=== PATIENT | male | born 1975 | race Caucasian/White ===

== ENCOUNTER → 2016-06-03 | Outpatient (CLI) | payer BC ==
[2015-11-21 17:43] VITALS: BP 132/86
[~2016-06-03] MED LIST: IOHEXOL 180 MG/ML 10 ML VIAL. ONE; LORA10TA3 PO; METF10002 PO; OMEP20TA PO; ONDA4TAB10 PO; OXYC-323 PO; SERT50TA PO; SITA100T PO; TRAZ50TA15 PO; losartan; methylPREDNISolone ACETATE 40 MG/ML VIAL. ONE; methylPREDNISolone ACETATE 80 MG/ML VIAL. ONE
--- NOTE | 2016-06-04 01:10 | PAIN ---
DATE OF SERVICE: 06/03/2016 INITIAL CONSULTATION FOR PAIN CLINIC CHIEF COMPLAINT: Low back and left lower extremity pain. HISTORY OF PRESENT ILLNESS: This is a 40-year-old male who presents with history of pain for about 10 years, worse over the past 6 months or so, increasing across the low back, mostly in the left side in the left lower back radiating into the posterior gluteus, posterior thigh, stabbing, constant, shooting pain, intermittent in intensity, but always present, worse when he is on his feet, standing and walking, wakes him from sleep occasionally, but not every night, does not affect his bowel or bladder control, but does affect his ability to walk. He is not using any assistive devices, however. 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 The patient reports that the pain is becoming more pronounced radiating into the posterior gluteus, posterior and lateral thigh as well as the upper thigh anteriorly, occasionally and into the posterior thigh and knee on occasion as well. The patient reports that he has had significant pain all the way into his lower leg in years past, but has not been present over the past year or so, just in the area described. The patient reports his disability rating from 0 to 10, 10 being the worst, as a 6 with family and home responsibilities, social activity and life support activities, 4 with recreation, 7 with occupation and sexual behavior, 3 with self-care activities. The patient has tried Celebrex without significant improvement. He has not had any recent physical therapy. He is doing some walking on his own, also riding his stationary bikes, which he feels decreased the pain slightly, but otherwise is not on any other formal treatments at this time. The patient did have an MRI scan of his lumbar spine showing moderate degenerative disk disease at L5-S1, minimally at L4-L5 and L1-L2 with minimal posterior disk osteophyte complex and very shallow protrusion in L5-S1, near the ventral surface of the descending S1 nerve root without displacement, very mild narrowing of the far lateral recesses bilaterally, but overall adequate canal dimensions. The patient reports no loss of motor function in the lower extremities, but significant pain with standing and walking, also with sitting on the left side. PAST MEDICAL HISTORY: Significant for diabetes, hearing loss, hypertension, gastroesophageal reflux, arthritis, no previous surgeries, asthma and depression. CURRENT MEDICATIONS: Include omeprazole, lamotrigine, trazodone, losartan, Januvia, metformin, sertraline. ALLERGIES: The patient has no known drug allergies. FAMILY HISTORY: Significant for diabetes, cancers, strokes, also arthritis, hypertension. SOCIAL HISTORY: The patient does not smoke, does not drink alcohol or use any other drugs or other substances. REVIEW OF SYSTEMS: The patient's review of systems is positive for those items mentioned in history of present illness. All systems reviewed and otherwise negative. It is complete, full and well documented on the patient's chart. PHYSICAL EXAMINATION: GENERAL: Blood pressure 133/89, pulse is 90, respirations 16, temperature is 97.6 degrees Fahrenheit, height is 6 feet 1 inch, weight is 243 pounds. GENERAL: The patient is awake, alert, oriented, appropriate, very pleasant demeanor. HEENT: Shows normocephalic, atraumatic. Extraocular movements are intact and symmetrical. Oral cavity, mucous membranes moist and pink. Dentition is intact. NECK: Shows anterior throat supple without palpable lymphadenopathy noted. Swallow reflex is symmetrical. Neck shows full rotational motion of the cervical spine without difficulty or tenderness including extension and flexion and right and left lateral rotation. CHEST: Shows normal with inspection. Breath sounds clear to auscultation bilaterally. HEART: Shows S1 and S2 clear. No murmurs auscultated. ABDOMEN: Soft, nontender, nondistended. No palpable organomegaly. No rebound or guarding demonstrated. BACK: Shows spine grossly in midline. Normal appearing thoracic kyphosis, lumbar lordotic curvature. No previous bruises, lesions, rashes or scars are noted with inspection. Lumbar paraspinous musculature shows symmetrical throughout the upper, middle and lower distribution, but palpation shows moderate tenderness with palpation in the inferior aspect of the left low paraspinous musculature in the lumbar distribution, but not right. Firm bilaterally, but normal muscle girth and symmetry, but no specific tenderness on the right side. There is no tenderness over the sacrum or sacroiliac regions. The patient has full rotational motion of lumbar spine, both laterally greater than 10 degrees right and left as well as extension greater than 10 degrees, forward flexion 45 degrees without significant exacerbation of pain. Lower extremities show deep tendon reflexes 2+ in the patellar, 1+ tendo calcaneus tendons. Motor exam is strong with 5/5 dorsiflexion, extension, quadriceps and hamstring flexion equal bilaterally. Peripheral pulses are 2+; posterior tibial and dorsalis pedis pulses are equal. No peripheral edema is noted. No clubbing, no cyanosis. Lower extremities are warm and dry to touch, equal in color and appearance. Straight leg raise noted to be negative bilaterally as is Gaenslen's and Maurice's maneuvers without pain reported to either of these bilaterally. The patient is able to stand, stand on his toes without difficulty or loss of balance, walks with a normal appearing gait for short distance, almost it is difficult getting from a sitting to a standing position as he reports pain across the low back into the left hip when doing this. IMPRESSION: 1. This is a 40-year-old male with long history of low back pain with some radicular pain into the left lower extremity, worse in the past, but now into the left hip and posterior lateral anterior thigh. 2. MRI scan of lumbar spine as noted. 3. History of hypertension. 4. Type 2 diabetes. PLAN: Options were discussed with the patient including conservative medical management, physical therapy, interventional techniques. He would like to pursue interventional techniques. He ____ time to visit physical therapy as he works night and his time is very limited during the day when he is not resting. We discussed lumbar epidural steroid injection using ____ anatomical models to describe the procedure. Risks were then discussed including, but not limited to bleeding, infection, possibility of epidural hematoma, subsequent neurologic compromise, dural puncture, headaches, spinal cord and/or nerve damage, side effects of steroid medication and poor results regarding pain control. The patient understands and wishes to proceed. The patient will return to clinic in approximately 2 weeks for followup, was counseled on return appointment, activity level and side effects to be aware of. DIAGNOSIS: Lumbar radiculopathy with lumbar degenerative disk disease. PROCEDURES: Lumbar epidural steroid injection in translaminar approach at the L5-S1 level using C-arm fluoroscopic guidance under sterile prep and drape and local anesthetic. MEDICATION INJECTED: 120 mg Depo-Medrol plus 10 mL of preservative-free normal saline and 2 mL of Isovue for contrast. CONDITION AT DISCHARGE: Stable. The patient tolerated procedure well and no complications. KANWAL LATIF MD DR: TRACEE/kvng JOB#: [id number] / [id number] ASA Chow
== END | disposition home or self-care (01) ==
LOC: PNCL 07:48
PROVIDERS: ATTEND Anesthesiology
DX: M51.16 Intervertebral disc disorders with radiculopathy, lumbar region (principal); I10 Essential (primary) hypertension; E11.9 Type 2 diabetes mellitus without complications; Z83.3 Family history of diabetes mellitus; Z80.9 Family history of malignant neoplasm, unspecified
CPT/HCPCS: 62323; J1030; J1040

== ENCOUNTER 2016-12-14 21:20 | Inpatient (IN) | payer BC ==
[~2016-12-14] VITALS: Ht 185.4 cm; Wt 108.2 kg
[~2016-12-14 21:20] MED LIST changes: -IOHEXOL 180 MG/ML 10 ML VIAL. ONE; +METF-620 PO; -METF10002 PO; -OMEP20TA PO; +OMEP20TA8 PO; -methylPREDNISolone ACETATE 40 MG/ML VIAL. ONE; -methylPREDNISolone ACETATE 80 MG/ML VIAL. ONE
[2016-12-14 21:49] LABS: BASO # 0.1 x10^3/uL (0.0-0.2); BASO % 1 % (0-3); EOS % 4 % (0-3); HEMATOCRIT 42.8 % (39.0-53.0); HEMOGLOBIN 14.9 g/dL (13.0-17.5); LYMPH # 2.8 x10^3/uL (1.0-4.8); LYMPH % 36 % (24-48); MEAN CORPUSCULAR HEMOGLOBIN 31 pg (25-35); MEAN CORPUSCULAR HGB CONC 35 g/dL (31-37); MEAN CORPUSCULAR VOLUME 90 fL (79-100); MONO % 10 % (0-9); NEUT % 50 % (31-73); PLATELET COUNT 198 x10^3/uL (140-400); RED BLOOD COUNT 4.75 x10^6/uL (4.30-5.70); RED CELL DISTRIBUTION WIDTH 13.8 % (11.5-14.5)
[2016-12-14 21:57] LABS: INR 1.1 (0.8-1.1); PROTHROMBIN TIME PATIENT 13.1 SEC (11.7-14.0)
[2016-12-14 22:04] LABS: CREATININE 1.3 mg/dL (0.7-1.3); GFR 61.1; POTASSIUM 3.9 mmol/L (3.5-5.1)
--- NOTE | 2016-12-14 22:13 | PHYS DOC ---
Past Medical History Past Medical History: Depression, Diabetes-Type II, GERD, Hypertension Additional Past Medical Histor: neuropathy, chronic back pain Past Surgical History: No Surgical History Additional Information: non smoker Alcohol Use: None Drug Use: None Adult General Chief Complaint Chief Complaint: CHEST PAIN HPI HPI Patient is a 41 year old male who presents with chest pain and lightheadedness. He states today at 1400 p.m. (Wednesday), he felt very lightheaded. Checked his blood sugar it was 157. That is low for him he states. His blood pressure was also low at 122/54. He noted that this evening he had an episode where felt like someone was "sitting on my chest" at 1830 p.m. The pain was 7-8 on a pain scale. It is very hard for him to breathe. Pains are sharp now and the pain is a 4. No recent travel. No leg pain or swelling. He has chronic loose stool from the metformin. He has poorly controlled diabetic he states his sugars run in the mid 200s-300 "normally." Did not take any aspirin at home. He is followed by Dr. Iain Carrillo's office. Review of Systems Review of Systems Constitutional: Denies fever or chills Eyes: Denies change in visual acuity, redness, or eye pain HENT: Denies nasal congestion or sore throat Respiratory: Denies cough ; POS shortness of breath earlier with pain Cardiovascular: see HPI GI: Denies abdominal pain, nausea, vomiting, bloody stools; chronic diarrhea secondary to metformin : Denies dysuria or hematuria Musculoskeletal: CHRONIC back pain or joint pain; neuropathy Integument: Denies rash or skin lesions Neurologic: Denies headache, focal weakness or sensory changes. Light-headed earlier today. Family History Family History POS for CAD Current Medications Current Medications Current Medications Medications (Trade) Dose Ordered Sig/[facility] Start Time Stop Time Status Last Admin Dose Admin Aspirin (Children'S Aspirin) 324 mg 1X ONCE 12/14/16 22:15 12/14/16 22:16 DC 12/14/16 21:47 324 MG Nitroglycerin (Nitro-Bid Oint) 1 inch 1X ONCE 12/14/16 22:15 12/14/16 22:16 DC 12/14/16 21:47 1 INCH Allergies Allergies Allergies Coded Allergies Type Severity Reaction Last Updated Verified No Known Drug Allergies 11/21/15 No Physical Exam Physical Exam Constitutional: Well developed, well nourished, no acute distress, non-toxic appearance. HENT: Normocephalic, atraumatic, bilateral external ears normal, oropharynx moist, no oral exudates, nose normal. Eyes: PERRLA, EOMI, conjunctiva normal, no discharge. Neck: Normal range of motion, no tenderness, supple, no stridor. Cardiovascular:Heart rate regular rhythm, no murmur Lungs & Thorax: Bilateral breath sounds clear to auscultation Abdomen: Bowel sounds normal, soft, no tenderness, no masses, no pulsatile masses. Skin: Warm, dry, no erythema, no rash. Back: No tenderness, no CVA tenderness. Extremities: No tenderness, no cyanosis, no clubbing, ROM intact, no edema. Neurologic: Alert and oriented X 3, normal motor function, normal sensory function, no focal deficits noted. Psychologic: Affect normal, judgement normal, mood normal. Current Patient Data Vital Signs Vital Signs Date Time Temp Pulse Resp B/P (MAP) Pulse Ox O2 Delivery O2 Flow Rate FiO2 12/14/16 23:00 82 18 113/68 (83) 95 Room Air 12/14/16 21:27 98.1 98.1 Lab Values Laboratory Tests Test 12/14/16 21:30 White Blood Count 8.0 x10^3/uL (4.0-11.0) Red Blood Count 4.75 x10^6/uL (4.30-5.70) Hemoglobin 14.9 g/dL (13.0-17.5) Hematocrit 42.8 % (39.0-53.0) Mean Corpuscular Volume 90 fL (79-100) Mean Corpuscular Hemoglobin 31 pg (25-35) Mean Corpuscular Hemoglobin Concent 35 g/dL (31-37) Red Cell Distribution Width 13.8 % (11.5-14.5) Platelet Count 198 x10^3/uL (140-400) Neutrophils (%) (Auto) 50 % (31-73) Lymphocytes (%) (Auto) 36 % (24-48) Monocytes (%) (Auto) 10 % (0-9) H Eosinophils (%) (Auto) 4 % (0-3) H Basophils (%) (Auto) 1 % (0-3) Neutrophils # (Auto) 4.0 x10^3uL (1.8-7.7) Lymphocytes # (Auto) 2.8 x10^3/uL (1.0-4.8) Monocytes # (Auto) 0.8 x10^3/uL (0.0-1.1) Eosinophils # (Auto) 0.3 x10^3/uL (0.0-0.7) Basophils # (Auto) 0.1 x10^3/uL (0.0-0.2) Prothrombin Time 13.1 SEC (11.7-14.0) Prothrombin Time INR 1.1 (0.8-1.1) D-Dimer (Jocelyn) 0.31 ug/mlFEU (0.00-0.50) Sodium Level 136 mmol/L (136-145) Potassium Level 3.9 mmol/L (3.5-5.1) Chloride Level 99 mmol/L (98-107) Carbon Dioxide Level 30 mmol/L (21-32) Anion Gap 7 (6-14) Blood Urea Nitrogen 22 mg/dL (8-26) Creatinine 1.3 mg/dL (0.7-1.3) Estimated GFR (Cockcroft-Gault) 61.1 Glucose Level 297 mg/dL (70-99) H Calcium Level 9.0 mg/dL (8.5-10.1) Magnesium Level 2.0 mg/dL (1.8-2.4) Total Bilirubin 0.5 mg/dL (0.2-1.0) Direct Bilirubin 0.1 mg/dL (0.0-0.2) Aspartate Amino Transferase (AST) 33 U/L (15-37) Alanine Aminotransferase (ALT) 90 U/L (16-63) H Alkaline Phosphatase 84 U/L (46-116) Creatine Kinase 139 U/L (39-308) Creatine Kinase MB (Mass) 0.6 ng/mL (0.0-3.6) Creatine Kinase MB Relative Index 0.4 % (0-4) Troponin I Quantitative < 0.017 ng/mL (0.000-0.055) AJ-Fxk-M-Type Natriuretic Peptide 10 pg/mL (0-124) Total Protein 7.7 g/dL (6.4-8.2) Albumin 3.7 g/dL (3.4-5.0) Lipase 238 U/L (73-393) Laboratory Tests 12/14/16 21:30 Laboratory Tests 12/14/16 21:30 EKG EKG EKG interpreted by myself at 2131 PM: NSR, rate 89, flipped T V1, non specific ST changes; no ST elevation. Radiology/Procedures Radiology/Procedures CXR interpreted by myself at 2300 PM: Normal cardiac silhouette, no pleural effusion, no infiltrate, no pneumothorax. Course & Med Decision Making Course & Med Decision Making Evaluated patient upon arrival. Aspirin was dosed. Nitropaste to chest wall. EKG with nonspecific changes but no STEMI. D-dimer and B and P along with cardiac enzymes are normal. However patient concerned about his lightheadedness and the chest pain earlier. He has multiple risk factors. We'll admit to Dr. Webb, spoke with her at 2330 PM. Cardiac evaluation with cardiology consultation the morning. MACE Scoring: History: Highly suspicious (2 points); Moderately suspicious (1 point). Slightly suspicious (0 point). EKG: ST segment depression (2 points). Nonspecific repolarization disturbance ( 1 point). normal (0 point) Age: Greater than 65 (2 points), 65-45 (1 point); less than 45 years old (0 points). Risk factors:> 3 risk factors (2 points), 1-2 risk factors (one point), no risk factors (0 point). (FH, DM, HTN) Troponin: > 2 times normal (2 points), 1-2 times normal (1 point) normal limits (0 point) Total score: ___4___ Score % pts MACE/n MACE Policy 0-3: 32% 1.9% 0.05% Discharge 4-6: 51% 413/3136 13% 1.3% Observation Risk management 7-10: 17% 518/1045 50% 2.8% Observation Treatment, CAGb My ALEX score ALEX score for NSTEMI: Age 65: No=0; Yes=1 3 CAD risk factors: Family history of CAD, hypertension, hypercholesterolemia, diabetes, family history of CAD, or current smoker: No=0; Yes=1 Known CAD (stenosis 50%: No=0; Yes=1 ASA use in past 7 days: No=0; Yes=1 Severe angina ( 2 episodes in 24 hrs): No=0; Yes=[address] changes 0.5m: No=0; Yes=1 Positive cardiac marker: No=0; Yes=1 Score:1 PERC Criteria Assessment: Age > 50: No HR > 100: No 02 < 95%: No H/o DVT/PE: No Recent trauma/surgery: No Hemoptysis No Exogenous Estrogen: No Unilateral Leg swelling: No Pretest probability > 15%: No Less than 2% risk of PE. No further work up is necessary I have spoken with the patient and/or caregivers. I have explained the patient' s condition, diagnosis and treatment plan based on the information available to me at this time. I have answered the patient's and/or caregiver's questions and addressed any concerns. The patient and/or caregivers have as good an understanding of the patient's diagnosis, condition and treatment plan as can be expected at this point. The patient has been stabilized within the capability of the emergency department. The patient will be transported for further care and management or will be moved to an observation or inpatient service. I have communicated with the staff or medical practitioner taking over this patient's care. I have assessed this patient clinically and believe that their condition requires admission to the hospital. After consulting the admitting physician about this case, they have asked that I admit this patient to their service as an inpatient based on the clinical presentation and my impression. Dragon Disclaimer Dragon Disclaimer This electronic medical record was generated, in whole or in part, using a voice recognition dictation system. Departure Departure Impression: Primary Impression: Chest pain Additional Impressions: Dyspnea Poorly controlled diabetes mellitus Disposition: ADMITTED INPATIENT Admitting Physician: Other (Trusty) Referrals: ASA DEY (PCP) Problem Qualifiers Primary Impression: Chest pain Chest pain type: unspecified Qualified Codes: R07.9 - Chest pain, unspecified Additional Impressions: Dyspnea Dyspnea type: unspecified Qualified Codes: R06.00 - Dyspnea, unspecified BRENDAN MARTÍNEZ MD Dec 14, 2016 22:13
[2016-12-14] MEDS ORDERED: ASPIRIN CHEWABLE 81 MG TABLET. PO ONE (22:15)
[2016-12-14] MEDS ORDERED: NITROGLYCERIN OINT 1 GM PACKET. TP ONE (22:15)
[2016-12-14 22:19] LABS: ALBUMIN 3.7 g/dL (3.4-5.0); DIRECT BILIRUBIN 0.1 mg/dL (0.0-0.2); TOTAL BILIRUBIN 0.5 mg/dL (0.2-1.0); TOTAL PROTEIN 7.7 g/dL (6.4-8.2)
[2016-12-14 22:33] LABS: CKMB MASS 0.6 ng/mL (0.0-3.6)
[2016-12-14] MEDS ORDERED: DEXTROSE 50% 25 GM / 50ML DISP.SYRIN. IV PRN (23:30)
[2016-12-14] MEDS ORDERED: ONDANSETRON PF 4 MG/2 ML VIAL. IV PRN (23:30)
[2016-12-14] MEDS ORDERED: MORPHINE SULFATE 2 MG/ML DISP.SYRIN. IV PRN (23:30)
[2016-12-15 00:08] VITALS: BP 107/75
[2016-12-15] MEDS ORDERED: LOSA1TAB25 PO (01:59)
[2016-12-15] MEDS ORDERED: GABA-586 PO (01:59)
[2016-12-15] MEDS ORDERED: METF-620 PO (01:59)
[2016-12-15] MEDS ORDERED: INSU100V13 SQ (01:59)
[2016-12-15] MEDS ORDERED: CELE200C PO (01:59)
[2016-12-15 03:36] VITALS: BP 125/85
[2016-12-15] MEDS: NITROGLYCERIN OINT 1 GM PACKET. TP SCH ×2 (06:00→14:00)
[2016-12-15 07:00] VITALS: BP 130/82
[2016-12-15] MEDS: INSULIN ASPART 300 UNITS/3 ML INSULN.PEN SQ SCH ×3 (08:00→18:32)
--- NOTE | 2016-12-15 08:40 | RAD ---
Chest radiograph 12/14/2016 11:42 PM Indication: Chest pain Comparison: Chest radiograph 11/26/2015 Technique: Single portable upright frontal view of the chest is provided. Findings: Cardiomediastinal silhouette is within normal limits. No pleural effusions, pulmonary vascular congestion or pneumothorax. The lungs are clear. Osseous structures are normal. Impression: No acute cardiopulmonary process.
[2016-12-15] MEDS ORDERED: ACETAMINOPHEN 500 MG TABLET PO ONE (09:15)
--- NOTE | 2016-12-15 09:19 | PDOC1 ---
H & P H&P History of present illness: Patient is a 41 year old male who presented to the ED with chest pain and lightheadedness, which she states started yesterday around 2 PM. He notes that he was feeling very lightheaded and presyncopal. His fiance checked his blood pressure and noted to be normal to mildly low at 122/54. His blood sugar at the time was approximately 155. He continued to have presyncope and generally feeling ill until later in the evening when he started having chest pain that he describes as pressure, 7 out of 10, located on the left side of his chest, nonradiating, nonexertional, constant, and associated with difficulty breathing. He denies nausea, vomiting, diaphoresis. He notes a history of chest pain in the past but describes not as sharp stabbing chest pain that lasts a few seconds at a time occurring once or twice a day for the last number of months. His fiance notes a history of family and friends issues yesterday that may have caused him stress. She notes that he is "irritable" on a regular occasion and believes that this may be related to his high stress life. Review of systems: Constitutional: Denies fever, fatigue, chills HEENT: Denies sore throat, vision changes Cardio: Denies chest pain currently, dyspnea with exertion, syncope, palpitations, edema Pulmonary: Denies shortness of breath currently, cough, wheezing GI: Denies nausea, vomiting, diarrhea, constipation : Denies dysuria, frequency Skin: Denies new lesions Neuro: Denies weakness, paresthesias; notes some burning pain in b/l feet chronically MSK: Notes some chronic back pain ED course: Labs are unremarkable including d-dimer apart from hyperglycemia. Troponin 2 is normal. EKG showed normal sinus rhythm with flipped T waves in V1 with no other ST changes. Chest x-ray was unremarkable. He was given aspirin and nitro paste was placed in chest wall and he was admitted for further evaluation. Past medical history: Type II by diabetes, hypertension, depression, anxiety, irritability, chronic back pain, GERD. Family history: Denies family history of coronary artery disease, HI, heart failure. Notes that his mom has a history of atrial fibrillation and stroke. Surgical history: Denies Social history: Never smoker, nondrinker, denies recreational drug use. Vital signs stable Medications: Reviewed Allergies: Reviewed Assessment/plan: Atypical chest pain Type 2 diabetes, moderately controlled, consulted by diabetic peripheral neuropathy, last A1c 7.2% per patient Hypertension Depression, anxiety, irritability Chronic back pain GERD Cardiology consulted by ED. Suspect that chest pain is noncardiac in origin, but would likely benefit from an outpatient workup, given his multiple risk factors. We have discussed for management of his type 2 diabetes with both medication and lifestyle changes. We have also discussed stress management. Pending cardiac consult and completion of final troponin and EKG, he will likely discharge home today with outpatient workup. He will follow up in our clinic within 1 week and continue all home medications. He may benefit from statin pending lipid profile and ASCVD risk. СЕРГЕЙ MAY MD Dec 15, 2016 09:19
[2016-12-15] MEDS ORDERED: SERTRALINE 50 MG TABLET. PO SCH (10:00)
[2016-12-15] MEDS ORDERED: hydroCHLOROthiazide 12.5 MG CAPSULE PO SCH (10:00)
[2016-12-15] MEDS ORDERED: LOSARTAN POTASSIUM 50 MG TABLET. PO SCH (10:00)
[2016-12-15] MEDS: GABAPENTIN 300 MG CAPSULE. PO SCH ×2 (10:00→14:33)
--- NOTE | 2016-12-15 10:27 | EKG ---
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
[2016-12-15 11:00] VITALS: BP 125/91
--- NOTE | 2016-12-15 11:01 | PDOC2 ---
CARLOS A SPARKS [employer] 12/15/16 1101: CARDIAC CONSULT DATE OF CONSULT Date of Consult DATE: 12/15/16 TIME: 10:41 REASON FOR CONSULT Reason for Consult: CP multiple risk factors REFERRING PHYSICIAN Referring Physician: Sarthak SOURCE Source: Chart review, Patient HISTORY OF PRESENT ILLNESS HISTORY OF PRESENT ILLNESS This is a pleasant 41 yo male admitted for complains of chest pain. Reports that he has been having intermittent CP but was not prolonging till yesterday which was pressure like nonradiating and lasted about 3 hours. [place] flushed at that time and SOA but no diaphoresis or sensation of palpitations. Also felt dizziness. He checked his BP and BG at that time and it was controlled. Denies any past CAD, VTE, falls or any injury. He did have syncopal spell nontraumatic about 9 months ago but no further recurrence after that. He verbalized medications compliance. PAST MEDICAL HISTORY Cardiovascular: HTN Pulmonary: No pertinent hx CENTRAL NERVOUS SYSTEM: Periperal neuropathy GI: GERD Heme/Onc: No pertinent hx Hepatobiliary: No pertinent hx Psych: Anxiety, Depression Musculoskeletal: low back pain, Osteoarthritis ENT: No pertinent hx Renal/: No pertinent hx Endocrine: Diabetes (2) Dermatology: No pertinent hx PAST SURGICAL HISTORY Past Surgical History: No pertinent history FAMILY HISTORY Family History: Other (mother has AFIB) SOCIAL HISTORY Smoke: No ALCOHOL: occassional Drugs: None Lives: with Family CURRENT MEDICATIONS CURRENT MEDICATIONS Current Medications Medications (Trade) Dose Ordered Sig/Mary Route PRN Reason Start Time Stop Time Status Last Admin Dose Admin Aspirin (Children'S Aspirin) 324 mg 1X ONCE PO 12/14/16 22:15 12/14/16 22:16 DC 12/14/16 21:47 Nitroglycerin (Nitro-Bid Oint) 1 inch 1X ONCE TP 12/14/16 22:15 12/14/16 22:16 DC 12/14/16 21:47 Acetaminophen (Tylenol) 1,000 mg 1X ONCE PO 12/15/16 09:15 12/15/16 09:16 DC 12/15/16 10:17 ALLERGIES ALLERGIES: Coded Allergies: No Known Drug Allergies (Unverified , 11/21/15) ROS Review of System 14 point ROS evaluated with pertinent positives noted per HPI PHYSICAL EXAM General: Alert, Oriented X3, Cooperative, No acute distress HEENT: Atraumatic, Mucous membr. moist/pink Lungs: Clear to auscultation, Normal air movement Heart: Regular rate (SR), Normal S1, Normal S2, No murmurs Abdomen: Soft, No tenderness Extremities: No cyanosis, No edema Skin: No breakdown, No significant lesion Neuro: Normal speech, Sensation intact Psych/Mental Status: Mental status NL, Mood NL MUSCULOSKELETAL: Full range of motion without pain VITALS VITALS Vital Signs Date Time Temp Pulse Resp B/P (MAP) Pulse Ox O2 Delivery O2 Flow Rate FiO2 12/15/16 08:10 Room Air 12/15/16 07:00 97.7 84 19 130/82 (98) 96 97.7 LABS Lab: Laboratory Tests Test 12/14/16 21:30 12/15/16 05:40 12/15/16 06:42 White Blood Count 8.0 x10^3/uL (4.0-11.0) Red Blood Count 4.75 x10^6/uL (4.30-5.70) Hemoglobin 14.9 g/dL (13.0-17.5) Hematocrit 42.8 % (39.0-53.0) Mean Corpuscular Volume 90 fL (79-100) Mean Corpuscular Hemoglobin 31 pg (25-35) Mean Corpuscular Hemoglobin Concent 35 g/dL (31-37) Red Cell Distribution Width 13.8 % (11.5-14.5) Platelet Count 198 x10^3/uL (140-400) Neutrophils (%) (Auto) 50 % (31-73) Lymphocytes (%) (Auto) 36 % (24-48) Monocytes (%) (Auto) 10 % (0-9) Eosinophils (%) (Auto) 4 % (0-3) Basophils (%) (Auto) 1 % (0-3) Neutrophils # (Auto) 4.0 x10^3uL (1.8-7.7) Lymphocytes # (Auto) 2.8 x10^3/uL (1.0-4.8) Monocytes # (Auto) 0.8 x10^3/uL (0.0-1.1) Eosinophils # (Auto) 0.3 x10^3/uL (0.0-0.7) Basophils # (Auto) 0.1 x10^3/uL (0.0-0.2) Prothrombin Time 13.1 SEC (11.7-14.0) Prothromb Time International Ratio 1.1 (0.8-1.1) D-Dimer (Jocelyn) 0.31 ug/mlFEU (0.00-0.50) Sodium Level 136 mmol/L (136-145) Potassium Level 3.9 mmol/L (3.5-5.1) Chloride Level 99 mmol/L (98-107) Carbon Dioxide Level 30 mmol/L (21-32) Anion Gap 7 (6-14) Blood Urea Nitrogen 22 mg/dL (8-26) Creatinine 1.3 mg/dL (0.7-1.3) Estimated GFR (Cockcroft-Gault) 61.1 Glucose Level 297 mg/dL (70-99) Calcium Level 9.0 mg/dL (8.5-10.1) Magnesium Level 2.0 mg/dL (1.8-2.4) Total Bilirubin 0.5 mg/dL (0.2-1.0) Direct Bilirubin 0.1 mg/dL (0.0-0.2) Aspartate Amino Transf (AST/SGOT) 33 U/L (15-37) Alanine Aminotransferase (ALT/SGPT) 90 U/L (16-63) Alkaline Phosphatase 84 U/L (46-116) Creatine Kinase 139 U/L (39-308) Creatine Kinase MB (Mass) 0.6 ng/mL (0.0-3.6) Creatine Kinase MB Relative Index 0.4 % (0-4) Troponin I Quantitative < 0.017 ng/mL (0.000-0.055) < 0.017 ng/mL (0.000-0.055) BK-Jab-V-Type Natriuretic Peptide 10 pg/mL (0-124) Total Protein 7.7 g/dL (6.4-8.2) Albumin 3.7 g/dL (3.4-5.0) Lipase 238 U/L (73-393) Glucose (Fingerstick) 182 mg/dL (70-99) ASSESSMENT/PLAN ASSESSMENT/PLAN 1. Chest pain: likely GI/anxiety. Troponin series normal, EKG SR without acute changes. 2. HTN: controlled 3. GERD 4. DM2/DPN: BG uncontrolled Recommendations 1. Continue home BP meds. 2. Treadmill MPI today 3. Lipid panel. and TSH Problems: BENJAMIN WOOD MD 12/15/16 1427: CARDIAC CONSULT ALLERGIES ALLERGIES: Coded Allergies: No Known Drug Allergies (Unverified , 11/21/15) ASSESSMENT/PLAN ASSESSMENT/PLAN Patient seen and examined. Agree with COOK JELLY's assessment and plan. Chest pain with atypical features Myocardial infarction ruled out Plan for treadmill nuclear stress test to rule out ischemia today Thank you for your consultation Problems: CARLOS A SPARKS APRN Dec 15, 2016 11:01 BENJAMIN WOOD MD Dec 15, 2016 14:27
[2016-12-15] MEDS ORDERED: PANTOPRAZOLE 40 MG TABLET.DR. PO SCH (11:30)
[2016-12-15 11:35] LABS: CHOLESTEROL/HDL RATIO 4.4
[2016-12-15 15:00] VITALS: BP 140/85
[2016-12-15] MEDS ORDERED: traZODone 50 MG TABLET. PO SCH (21:00)
[2016-12-15] MEDS ORDERED: INSULIN DETEMIR 300 UNITS/3 ML INSULN.PEN. SQ SCH (21:00)
--- NOTE | 2016-12-16 07:34 | RAD ---
APPROVED REPORT Test Type: Exercise Stress Nurse/Tech: Patsy Hallman R.N. Test Indications: cp Cardiac History: htn Medications: see ehr Medical History: see ehr Resting ECG: sr Resting Heart Rate: 83 bpm Resting Blood Pressure: 133/73mmHg Pretest Chest Pain: No chest pain Nurse/Tech Notes lungs cta, heart tones regular Consent: The procedure was explained to the patient in lay terms. Informed consent was witnessed. Be eout was entered into [id number] History and Stress Test performed by RT Gilda (R) (N) Stress Symptoms No chest pain or symptoms. POST EXERCISE Reason for Termination: Reached target heart rate Target HR: Yes Max HR: 160 bpm 89% of Maximum Predicted HR: 180 bpm Exercise duration: 8:00 min:sec, Stage Exercise capacity: 10.0METs Max Blood Pressure: 148/78mmHg Blood Pressure response to exercise: Normal blood pressure response during stress. Heart Rate response to exercise: normal Chest Pain: No. Arrhythmia: No. ST Change: Yes. ST changes in V3-6in stage 2cont throughout recovery, Lead 1 and AVR changes inrecove ry, resolved INTERPRETATION Stress EKG Conclusion: Baseline EKG showed sinus rhythm. No ischemic changes at peak stress. No arr hythmias. Imaging Protocol IMAGE PROTOCOL: Rest Tc-99m/stress Tc-99m 1 day Rest: Stress: Viability: Radiopharm.Tc99m [id number] Sestamibi Ilbt53sWp 31mCi Img Date 12/15/2016 12/15/2016 Inj-Img [id number]. 45min. Rest Admin Site:IV - Right AntecubitalAdministrator:SOHAIL Zimmerman, ARRT (R)(N) Stress Admin Site: IV - Right AntecubitalAdministrator: RT Gilda (R)(N) STRESS DATA End Diast. Vol.81.0mlAv. Heart Emlt547.0bpm End Syst. Vol.23.0mlCO Index BSA0.0L/min Myocardial Agfh487.0gEject. Kanlatks21.0% Stress Rates Pk. Fill Rate5.06EDV/secLVtime Pk. Fill 179.83msec Pk. Empty Rate5.79ESV/secLVtime Pk. Eject85.74msec 1/3 Pk. Fill1.65EDV/sec Stress Scores Regional WT0.00Summed WT3.00 Regional WM0.00Summed WM0.00 Study quality was good. Left Ventricular size was Normal at Rest and Stress. Lung uptake was Normal. Left Ventricular ejection fraction is 72%. The rest and stress images show normal perfusion, normal contraction and thickening. LV Perf. Quant 17 Seg. SSS0.00 17 Seg. SRS0.00 17 Seg. SDS0.00 Stress Defect Extent (% LAD)0.00Rest Defect Extent (% LAD)0.00Rev. Defect Extent (% LAD)0.00 Stress Defect Extent (% LCX) 0.00Rest Defect Extent (% LCX)0.00Rev. Defect Extent (% LCX)0.00 Stress Defect Extent (% RCA)0.00Rest Defect Extent (% RCA)0.00Rev. Defect Extent (% RCA)0.00 Stress Defect Extent (% STANLEY)0.00Rest Defect Extent (% STANLEY)0.00Rev. Defect Extent (% STANLEY)0.00 Conclusion 1. Treadmill exercise cardioisotope stress test did not show any evidence of ischemia or infarct. 2. Normal left ventricular systolic function with ejection fraction calculated at 72%. 3. Patient had good activity tolerance. Low risk for cardiac events.
--- NOTE | 2016-12-16 08:11 | PDOC3 ---
Discharge Summary [facility] Date of Admission: Dec 15, 2016 Discharge Date: Dec 15, 2016 Admitting Diagnosis Chest pain, acs rule out Problems: Final Diagnosis Problems Medical Problems: (1) Chest pain Status: Acute (2) Dyspnea Status: Acute (3) Poorly controlled diabetes mellitus Status: Acute CONSULTS Dr. Willis Procedures Stress MPI Brief Hospital Course Mr. Stearns is a 41 old male who presented for admission for work up of atypical chest pain. Labs and CXR were unremarkable. Stress MPI was done and read as normal, low risk for cardiac events. Pt will resume home medications and follow up in clinic for optimization of his risk profile, including improved management of his type 2 diabetes. He was stable at discharge. Chest pain was likely anxiety based in origin due to multiple stressors with friends and family. Will start Vistaril PRN for anxiety. Patient History: Problems: CONDITION AT DISCHARGE: Improved Scheduled Celecoxib (Celebrex), 1 CAP PO DAILY, (Reported) Gabapentin (Gabapentin), 300 MG PO TID, (Reported) Insulin Detemir (Levemir), 40 UNIT SQ QHS, (Reported) Losartan/Hydrochlorothiazide (Losartan-Hctz 100-12.5 Mg Tab), 1 EACH PO DAILY, ( Reported) Metformin Hcl (Metformin Hcl), 1,000 MG PO BIDWMEALS, (Reported) Trazodone Hcl (Trazodone Hcl), 1 TAB PO QHS, (Reported) Miscellaneous Medications Loratadine (Loratadine), 1 TAB PO, (Reported) Omeprazole (Omeprazole), 1 TAB PO, (Reported) Sertraline Hcl (Zoloft), 1 TAB PO, (Reported) Sitagliptin Phosphate (Januvia), 1 TAB PO, (Reported) Discontinued Medications Metformin Hcl (Metformin Hcl), 1 TAB PO, (Reported) [losartan], (Reported) Follow Up [address] Webb or СЕРГЕЙ Treadwell MD Dec 16, 2016 08:11
== END 2016-12-15 21:01 | disposition home or self-care (01) | DRG 880 ==
LOC: ER 21:20 → 2 SOUTH 23:20
PROVIDERS: ADMIT Family Medicine; ATTEND Family Medicine
DX: F41.9 Anxiety disorder, unspecified (principal); E11.42 Type 2 diabetes mellitus with diabetic polyneuropathy; E11.65 Type 2 diabetes mellitus with hyperglycemia; F32.9 Major depressive disorder, single episode, unspecified; G89.29 Other chronic pain; M54.5 Low back pain; I10 Essential (primary) hypertension; K21.9 Gastro-esophageal reflux disease without esophagitis; Z79.4 Long term (current) use of insulin; Z82.3 Family history of stroke; Z82.49 Family history of ischemic heart disease and other diseases of the circulatory system
CPT/HCPCS: 36415; 71010; 78452; 80048; 80061; 80076; 82550; 82553; 82962; 83690; 83735; 83880; 84443; 84484; 85025; 85379; 85610; 93005; 93017; 96374; 96376; A9500; J1815; 99285-25

== ENCOUNTER 2017-01-24 06:34 | Emergency (ER) | payer BC ==
[~2017-01-24 06:34] MED LIST changes: +CELE200C PO; +GABA-586 PO; +INSU100V13 SQ; +LOSA1TAB25 PO
--- NOTE | 2017-01-24 06:41 | PHYS DOC ---
Past Medical History Past Medical History: Depression, Diabetes-Type II, GERD, Hypertension Additional Past Medical Histor: neuropathy, chronic back pain Past Surgical History: No Surgical History Alcohol Use: None Drug Use: None Adult General Chief Complaint Chief Complaint: FOOT INJURY PAIN [facility] HPI Patient is a 41 year old male who presents with great toe pain. He states it started yesterday morning. Been getting worse. He states it hard for him to walk on it he has to hobble. Denies any fevers chills nausea or vomiting. Does have a history of diabetes. Never had a history of gout. Denies any trauma to it. Review of Systems Review of Systems Constitutional: Denies fever or chills [] Eyes: Denies change in visual acuity, redness, or eye pain [] HENT: Denies nasal congestion or sore throat [] Respiratory: Denies cough or shortness of breath [] Cardiovascular: No additional information not addressed in HPI [] GI: Denies abdominal pain, nausea, vomiting, bloody stools or diarrhea [] : Denies dysuria or hematuria [] Musculoskeletal: Denies back pain, positive for left foot pain Integument: Denies rash or skin lesions [] Neurologic: Denies headache, focal weakness or sensory changes [] Endocrine: Denies polyuria or polydipsia [] All other systems were reviewed and found to be within normal limits, except as documented in this note. Allergies Allergies Allergies Coded Allergies Type Severity Reaction Last Updated Verified No Known Drug Allergies 11/21/15 No Physical Exam Physical Exam Constitutional: Well developed, well nourished, no acute distress, non-toxic appearance. [] HENT: Normocephalic, atraumatic, bilateral external ears normal, oropharynx moist, no oral exudates, nose normal. [] Eyes: PERRLA, EOMI, conjunctiva normal, no discharge. [] Neck: Normal range of motion, no tenderness, supple, no stridor. [] Cardiovascular:Heart rate regular rhythm, no murmur [] Lungs & Thorax: Bilateral breath sounds clear to auscultation [] Abdomen: Bowel sounds normal, soft, no tenderness, no masses, no pulsatile masses. [] Skin: Warm, dry, no erythema, no rash. [] Back: No tenderness, no CVA tenderness. [] Extremities: Tender palpation with mild redness over the first left MCT joint, mild tenderness over the second third, no obvious signs of infection noted, no cyanosis, no clubbing, ROM intact, no edema. [] Neurologic: Alert and oriented X 3, normal motor function, normal sensory function, no focal deficits noted. [] Psychologic: Affect normal, judgement normal, mood normal. [] Current Patient Data Vital Signs Vital Signs Date Time Temp Pulse Resp B/P (MAP) Pulse Ox O2 Delivery O2 Flow Rate FiO2 01/24/17 07:04 98.0 78 16 132/78 (96) 98 Room Air 98.0 Lab Values Laboratory Tests Test 01/24/17 08:00 White Blood Count 9.2 x10^3/uL (4.0-11.0) Red Blood Count 4.63 x10^6/uL (4.30-5.70) Hemoglobin 14.0 g/dL (13.0-17.5) Hematocrit 42.1 % (39.0-53.0) Mean Corpuscular Volume 91 fL (79-100) Mean Corpuscular Hemoglobin 30 pg (25-35) Mean Corpuscular Hemoglobin Concent 33 g/dL (31-37) Red Cell Distribution Width 13.2 % (11.5-14.5) Platelet Count 196 x10^3/uL (140-400) Neutrophils (%) (Auto) 71 % (31-73) Lymphocytes (%) (Auto) 19 % (24-48) L Monocytes (%) (Auto) 8 % (0-9) Eosinophils (%) (Auto) 2 % (0-3) Basophils (%) (Auto) 0 % (0-3) Neutrophils # (Auto) 6.5 x10^3uL (1.8-7.7) Lymphocytes # (Auto) 1.7 x10^3/uL (1.0-4.8) Monocytes # (Auto) 0.8 x10^3/uL (0.0-1.1) Eosinophils # (Auto) 0.2 x10^3/uL (0.0-0.7) Basophils # (Auto) 0.0 x10^3/uL (0.0-0.2) Erythrocyte Sedimentation Rate 8 (0-15) Sodium Level 140 mmol/L (136-145) Potassium Level 4.1 mmol/L (3.5-5.1) Chloride Level 104 mmol/L (98-107) Carbon Dioxide Level 28 mmol/L (21-32) Anion Gap 8 (6-14) Blood Urea Nitrogen 15 mg/dL (8-26) Creatinine 1.3 mg/dL (0.7-1.3) Estimated GFR (Cockcroft-Gault) 61.1 BUN/Creatinine Ratio 12 (6-20) Glucose Level 134 mg/dL (70-99) H Calcium Level 8.4 mg/dL (8.5-10.1) L Total Bilirubin 0.3 mg/dL (0.2-1.0) Aspartate Amino Transferase (AST) 22 U/L (15-37) Alanine Aminotransferase (ALT) 57 U/L (16-63) Alkaline Phosphatase 61 U/L (46-116) C-Reactive Protein, Quantitative 6.9 mg/L (0-3.3) H Total Protein 7.0 g/dL (6.4-8.2) Albumin 3.3 g/dL (3.4-5.0) L Albumin/Globulin Ratio 0.9 (1.0-1.7) L Laboratory Tests 01/24/17 08:00 Laboratory Tests 01/24/17 08:00 EKG EKG [] Radiology/Procedures Radiology/Procedures [facility] [address] [facility] [place] [address] IMAGING REPORT Signed PATIENT: LIAM XIONG ACCOUNT: [id number] : 1975 LOCATION: ER AGE: 41 SEX: M EXAM STATUS: REG ER ORD. PHYSICIAN: EDUARD MORAES MD REASON: left first mct pain PROCEDURE: FOOT LEFT 3V FOOT LEFT 3V Clinical Indication: left first mct pain, no injury Comparison: None. Technique: Frontal, oblique and lateral views of the left foot are obtained. Findings: No acute fracture or dislocation is seen. No significant degenerative changes are seen. Mild soft tissue swelling is noted about the first metacarpophalangeal joint, with minimal degenerative changes of the first MCP joint present. IMPRESSION: No acute osseous injury seen. DICTATED and SIGNED BY: ANDRES BUSTAMANTE MD DATE: 01/24/17 0736 CC: EDUARD MORAES MD; ASA DEY ~ Impressions: Left great toe pain Course & Med Decision Making Course & Med Decision Making Pertinent Labs and Imaging studies reviewed. (See chart for details) I discussed the option of drawing some fluid off his foot to check for infection versus crystals and he states he does not want that done at this time. He rather try to treat the pain is even scalp and come back if it gets worse. He is to follow-up with his primary care physician tomorrow. He is being discharged with crutches and [place]. Return precautions given his agreeable to the plan and is in stable condition this time. Dragon Disclaimer Dragon Disclaimer This electronic medical record was generated, in whole or in part, using a voice recognition dictation system. Departure Departure Impression: Primary Impression: Foot pain Disposition: 01 HOME, SELF-CARE Condition: STABLE Referrals: ASA DEY (PCP) Patient Instructions: Gout Additional Instructions: I'm unsure if this is gout or infection. You do not have an elevated white blood cell count at this time and do not have a fever. I discussed the options with you regarding treating for infection or try to treat for gout at this time we will treat for gout with pain meds and he can use crutches and follow-up with your primary care physician. This could be an early infection and if it is you need to return back to ER if your pain gets worse, you develop fevers, nausea, or other concerns. You can use [place], which is a narcotic pain medicine , 1-2 tablets every 6 hours as needed for pain. He can use crutches to help you get around the next couple days. Please don't drive your car or drink alcohol or taking this medicine as it can impair judgment and make you sleepy. Scripts Hydrocodone/Apap 5-325 (NORCO 5-325 TABLET) 1 Each Tablet 1 TAB PO PRN Q6HRS Y for PAIN, #20 TAB 0 Refills Prov: EDUARD MORAES MD 01/24/17 EDUARD MORAES MD Jan 24, 2017 06:41
[2017-01-24 07:04] VITALS: BP 132/78
--- NOTE | 2017-01-24 07:42 | RAD ---
FOOT LEFT 3V Clinical Indication: left first mct pain, no injury Comparison: None. Technique: Frontal, oblique and lateral views of the left foot are obtained. Findings: No acute fracture or dislocation is seen. No significant degenerative changes are seen. Mild soft tissue swelling is noted about the first metacarpophalangeal joint, with minimal degenerative changes of the first MCP joint present. IMPRESSION: No acute osseous injury seen.
[2017-01-24 08:12] LABS: BASO % 0 % (0-3); EOS % 2 % (0-3); HEMATOCRIT 42.1 % (39.0-53.0); LYMPH # 1.7 x10^3/uL (1.0-4.8); LYMPH % 19 % (24-48); MEAN CORPUSCULAR HEMOGLOBIN 30 pg (25-35); MEAN CORPUSCULAR HGB CONC 33 g/dL (31-37); MEAN CORPUSCULAR VOLUME 91 fL (79-100); MONO % 8 % (0-9); NEUT % 71 % (31-73); PLATELET COUNT 196 x10^3/uL (140-400); RED BLOOD COUNT 4.63 x10^6/uL (4.30-5.70); RED CELL DISTRIBUTION WIDTH 13.2 % (11.5-14.5); WHITE BLOOD COUNT 9.2 x10^3/uL (4.0-11.0)
[2017-01-24 08:16] LABS: CALCIUM 8.4 mg/dL (8.5-10.1); CREATININE 1.3 mg/dL (0.7-1.3); GFR 61.1; POTASSIUM 4.1 mmol/L (3.5-5.1)
[2017-01-24 08:21] LABS: ALBUMIN 3.3 g/dL (3.4-5.0); ALBUMIN/GLOBULIN RATIO 0.9 (1.0-1.7); TOTAL BILIRUBIN 0.3 mg/dL (0.2-1.0)
[2017-01-24 08:43] LABS: C-REACTIVE PROTEIN 6.9 mg/L (0-3.3)
[2017-01-24] MEDS ORDERED: HYDR-971 PO (09:48)
== END 2017-01-24 10:26 | disposition home or self-care (01) ==
LOC: ER 06:34
DX: M79.674 Pain in right toe(s) (principal); G89.29 Other chronic pain; E11.40 Type 2 diabetes mellitus with diabetic neuropathy, unspecified; I10 Essential (primary) hypertension; K21.9 Gastro-esophageal reflux disease without esophagitis
CPT/HCPCS: 36415; 73630; 80053; 85025; 85651; 86140; 99285

== ENCOUNTER → 2020-05-23 | Outpatient (CLI) | payer BC ==
[~2020-05-23] MED LIST changes: -GABA-586 PO; +GABA300C18 PO; +HYDR-3164 PO; -METF-620 PO; +METF10007 PO; -OXYC-323 PO; +OXYC1TAB15 PO; +TRAZ-118 PO; -TRAZ50TA15 PO
--- NOTE | 2020-05-23 12:52 | KCIC ---
MRI of the lumbar spine without contrast 05/23/2020 CLINICAL HISTORY: Chronic low back pain which radiates down both hips. TECHNIQUE: Unenhanced T1-weighted and T2-weighted sagittal and axial and inversion recovery sagittal images of the lumbar spine were obtained. FINDINGS: Comparison study is dated 11/26/2015. Minimal S-shaped curvature of the thoracolumbar spine is seen. Degenerative signal changes and loss o f height are seen involving the L1-2, L4-5 and L5-S1 discs. Degenerative signal changes are seen with in the marrow surrounding these discs. The conus medullaris is normal morphology, position, and signa l characteristics. At the L1-2, L2-3 and L3-4 disc spaces there are minimal to mild generalized disc bulges. Degenerativ e changes are seen involving the facet joints bilaterally. There is mild ligamentum flavum hypertroph y bilaterally. These findings do not result in significant central spinal canal or neural foraminal s tenosis. At the L4-5 disc space there is a mild to moderate generalized disc bulge. Degenerative changes are s een involving the facet joints bilaterally. There is mild to moderate ligamentum flavum hypertrophy b ilaterally. There are small facet joint effusions bilaterally. These findings when combined results i n mild central spinal canal stenosis. No neural foraminal stenosis is seen. At the L5-S1 disc space there is a mild generalized disc bulge. Superimposed on this disc bulge is a focal central disc protrusion. This measures 4 mm in AP diameter. Degenerative changes are seen invol ving the facet joints bilaterally. There is mild ligamentum flavum hypertrophy bilaterally. These fin dings when combined result in mild central spinal canal stenosis. No neural foraminal stenosis is see n. The degenerative changes have progressed slightly since the previous study. IMPRESSION: The changes of degenerative disc disease are seen throughout the lumbar spine. These find ings results in mild central spinal canal stenosis at L4-5 and L5-S1. No neural foraminal stenosis is seen. Electronically signed by: Alejandro Owens MD (05/23/2020 12:50 PM) [id number]
== END ==
LOC: KCIC MRI 09:43
PROVIDERS: ATTEND Family Medicine
DX: M47.816 Spondylosis without myelopathy or radiculopathy, lumbar region (principal); M51.36 Other intervertebral disc degeneration, lumbar region
CPT/HCPCS: 72148